=== PATIENT | female | born 1945 | race Caucasian/White ===

== ENCOUNTER 2021-03-04 15:37 | Observation (INO) ==
[2021-03-04] MEDS ORDERED: Ondansetron 4 MG/2 ML VIAL IVP PRN (18:10)
[2021-03-04] MEDS ORDERED: Melatonin 3 MG TABLET PO PRN (18:10)
[2021-03-04] MEDS ORDERED: Naloxone 0.4 MG/ML INJ IVP PRN (19:46)
[2021-03-04 23:10] LABS: Folate 7.8 ng/mL (3.0-16.0)
[2021-03-05 03:28] LABS: BUN/Creatinine Ratio 38 (6-26); Blood Urea Nitrogen 29 mg/dL (8-23); Calcium 8.3 mg/dL (8.6-10.3); Carbon Dioxide 27 mEq/L (23-29); Chloride 106 mEq/L (98-107); Glucose 87 mg/dL (70-105); Magnesium 1.8 mg/dL (1.6-2.6); Osmolality,Calculated 293 (280-300); Phosphorous 2.7 mg/dL (2.7-4.5); Sodium 139 mEq/L (136-145); eGFR For African Americans > 60 (> 60); eGFR For Non-African Americans > 60 (> 60)
[2021-03-05 03:31] LABS: Chol/HDL Ratio 3.9 (0-4.9)
[2021-03-05 04:01] LABS: Estimated Average Glucose 111 mg/dl; Hemoglobin A1C 5.5 %
[2021-03-05 05:02] LABS: Hematocrit 36.2 % (35.3-44.9); Hemoglobin 11.7 g/dL (11.5-15.4); Mean Corpuscular HGB Conc 32.3 g/dL (31.6-35.5); Mean Corpuscular Hemoglobin 32.1 pg (28.0-33.3); Mean Corpuscular Volume 99.2 fL (83.0-100.0); Mean Platelet Volume 10.8 fL (9.4-12.4); Platelet Count 154 K/mcL (140-400); Red Blood Count 3.65 M/mcL (3.82-4.97); Red Cell Distribution Width 13.2 % (11.5-14.5); White Blood Count 7.3 K/mcL (4.3-11.1)
[2021-03-05] MEDS: *HR* Enoxaparin 40 MG/0.4 ML SYRINGE SQ SCH (05:49)
[2021-03-05] MEDS: Aspirin 81 MG TAB.CHEW PO SCH (10:16)
[2021-03-05] MEDS: Gabapentin 300 MG CAPSULE PO SCH ×3 (12:07→20:08)
[2021-03-05] MEDS ORDERED: Perflutren Lipid Microsphere 1.3 ML in 0.9 % Sodium Chloride 8.7 ML IVP PRN (14:32)
[2021-03-05] MEDS: Acetaminophen 325 MG TABLET PO PRN (16:41)
[2021-03-05] MEDS ORDERED: *HR* OxyCODONE Immed Rel 5 MG TABLET PO ONE (17:50)
[2021-03-06] MEDS: *HR* Enoxaparin 40 MG/0.4 ML SYRINGE SQ SCH (04:53)
[2021-03-06] MEDS: Acetaminophen 325 MG TABLET PO PRN (05:14)
[2021-03-06] MEDS: Gabapentin 300 MG CAPSULE PO SCH ×2 (08:54→13:06)
[2021-03-06] MEDS: Aspirin 81 MG TAB.CHEW PO SCH (08:55)
[2021-03-06] MEDS ORDERED: *HR* OxyCODONE Immed Rel 5 MG TABLET PO ONE (10:41)
[2021-03-06 10:52] VITALS: BP 146/81; PULSE 79; TEMP 98; O2SAT 95
== END 2021-03-06 16:32 | disposition home or self-care (01) ==
LOC: 3BNU → SUATTDRO 17:55
PROVIDERS: ADMIT Internal Medicine; ATTEND Registered Nurse